=== PATIENT | male | born 1990 | race Asian ===

== ENCOUNTER 2024-02-22 16:39 | Observation (INO) ==
[2024-02-22 17:32] LABS: Urine Appearance Clear; Urine Bilirubin Negative (Negative); Urine Blood Negative (Negative); Urine Color Colorless; Urine Glucose Negative (Negative); Urine Ketones Negative (Negative); Urine Nitrite Negative (Negative); Urine Protein Negative (Negative); Urine Specific Gravity 1.004 (1.002-1.030); Urine Urobilinogen Negative (Negative); Urine pH 6.5 (5.0-8.0)
[2024-02-22 17:42] LABS: ABS Basophils 0.1 10^3/uL (0.0-0.1); ABS Eosinophils 0.1 10^3/uL (0.0-0.5); ABS Lymphocytes 1.6 10^3/uL (1.0-4.8); ABS Monocytes 0.7 10^3/uL (0.0-1.1); ABS Nucleated RBC 0.03 10^3/ul; Eosinophil % 0.7 %; Lymphocyte % 12.8 %; Mean Corpuscular Hemoglobin 28.9 pg (27-33); Mean Corpuscular Hgb Conc 34.3 g/dL (31-36); Mean Corpuscular Volume 84.4 fL (80-97); Mean Platelet Volume 9.3 fL (7.5-11.2); Nucleated Red Blood Cells % 0.2 %/100WBC (0.0-0.8); Platelet Count 221 10^3/uL (150-450); Red Blood Count 4.85 10^6/uL (4.06-5.63); Red Cell Distribution Width 14.8 % (12-17); White Blood Count 12.4 10^3/uL (3.6-10.2)
[2024-02-22 18:24] LABS: Albumin 4.8 g/dL (3.2-5.2); Albumin/Globulin Ratio 2.1 (1-3); C Reactive Protein 9.13 mg/L (<8.01); Calcium 9.8 mg/dL (8.6-10.3); Creatinine, Serum 0.82 mg/dL (0.67-1.17); Globulin 2.3 g/dL (2-4); Potassium 4.2 mmol/L (3.5-5.0); Total Bilirubin 0.7 mg/dL (0.2-1.0); Total Protein 7.1 g/dL (6.4-8.9); eGFR CKD-EPI 117.5 (>60)
[2024-02-22] MEDS: Iohexol 350 (CONTRAST) 500 ML MDV IV ONE (19:38)
[2024-02-22] MEDS: Piperacillin/Tazobac 3.375 BAG 3.375 GM/100 ML BAG IV ONE (23:05)
[2024-02-22] MEDS ORDERED: Ondansetron 4 mg VIAL 2 MG/ML 2 ml VIAL IV PRN (23:21)
[2024-02-22] MEDS ORDERED: Morphine 2 MG/ML SYRINGE IV PRN (23:24)
[2024-02-23] MEDS: Lactated Ringers 1000 ml BAG 1,000 ML IV SCH (01:02)
[2024-02-23] MEDS: D5W 1/2 NS 1000 ml BAG 1,000 ML IV SCH (02:38)
[2024-02-23] MEDS: Piperacillin/Tazobac 3.375 BAG 3.375 GM/100 ML BAG IV SCH (04:27)
[2024-02-23] MEDS ORDERED: Propofol 10 MG/ML 20 ML BTL ONE (17:20)
[2024-02-23] MEDS ORDERED: Bupivacaine 0.25% w/EPI 10 ML SDV ONE (17:21)
[2024-02-23] MEDS ORDERED: Rocuronium 50 mg VIAL 10 mg/ml 5 ml VIAL (50 mg) ONE (17:21)
[2024-02-23] MEDS ORDERED: Lidocaine 2% PF 5 ML VIAL ONE (17:21)
[2024-02-23] MEDS ORDERED: Prochlorperazine 5 mg/ml 2 ml VIAL (10 mg) IV PRN (17:37)
[2024-02-23] MEDS ORDERED: Naloxone 0.4 mg VIAL 0.4 mg/ml 1 ml VIAL IV PRN (17:37)
[2024-02-23] MEDS ORDERED: fentaNYL 100 mcg/2 ml 50 MCG/ML VIAL IV PRN (17:37)
[2024-02-23] MEDS ORDERED: fentaNYL 100 mcg/2 ml 50 MCG/ML VIAL ONE (17:57)
[2024-02-23] MEDS ORDERED: Dexamethasone IV 4 MG/ML VIAL 1 ml VIAL ONE (18:09)
[2024-02-23] MEDS ORDERED: Ondansetron 4 mg VIAL 2 MG/ML 2 ml VIAL ONE (18:33)
[2024-02-23 21:30] VITALS: BP 135/85
== END 2024-02-23 21:29 | disposition home or self-care (01) ==
LOC: EDHOLD 16:39 → ED 16:39 → EDHOLD 02-23 10:09 → AA 02-23 16:26
PROVIDERS: ADMIT Surgery Surgical Critical Care; ATTEND Surgery